=== PATIENT | female | born 1995 | race Two or more races ===

== ENCOUNTER 2022-10-16 15:34 | Observation (INO) | payer MEDICAID, OTHER ==
[~2022-10-16] VITALS: Ht 172.7 cm; Wt 108.7 kg
[2022-10-16 16:46] VITALS: BP 122/68
[2022-10-16] MEDS ORDERED: ACETAMINOPHEN IV 1000 MG/100ML (10MG/ML) IV PRN (18:45)
[2022-10-16] MEDS ORDERED: AZITHROMYCIN 500MG/ 250ML 250 ML IV SCH (19:00)
[2022-10-16] MEDS ORDERED: NIFEdipine 10 MG CAP PO ONE (19:00)
[2022-10-16] MEDS ORDERED: ceFAZolin 2 GM/D5W100ml 100 ML IV ONE (19:00)
[2022-10-16 20:22] LABS: Alcohol, Urine < 3.0 mg/dL (0-10); Amphetamine Screen, Urine NEGATIVE (NEGATIVE); Barbiturate Scree,Urine NEGATIVE (NEGATIVE); Benzodiazephine Screen, Urine NEGATIVE (NEGATIVE); Cannabinoid Screen, Urine NEGATIVE (NEGATIVE); Cocaine Screen, Urine NEGATIVE (NEGATIVE); Opiate Scree,Urine NEGATIVE (NEGATIVE); Phencyclidine Screen, Urine NEGATIVE (NEGATIVE)
[2022-10-16 20:49] LABS: Urine Bacteria NONE SEEN /hpf (None Seen); Urine Blood Negative /uL (Negative); Urine Mucus FEW (None Seen); Urine Specific Gravity 1.017 (1.001-1.035); Urine WBC 3 /hpf (0 - 5)
[2022-10-16] MEDS ORDERED: BETAMETHASONE ACET (30mg/5ml) 5ml Vial 6mg/ml IM ONE (22:45)
[2022-10-16 22:48] LABS: Basophils # (auto) 0 10 ^3/uL (0-0.2); Basophils % (auto) 0.3 % (0.0-2.0); Eosinophils # (auto) 0 10 ^3/uL (0-0.8); Hematocrit 34.6 % (36.0-46.0); Hemoglobin 11.6 g/dL (12.2-16.2); Lymphocytes % (auto) 12.1 % (10.0-50.0); Mean Corpuscular Hgb Conc. 33.5 g/dL (32.0-36.0); Mean Corpuscular Volume 86.4 fL (80.0-100.0); Monocytes # (auto) 0.6 10 ^3/uL (0-1.3); Monocytes % (auto) 7.3 % (0.0-12.0); Neutrophils # (auto) 6.8 10 ^3/uL (1.6-8.6); Neutrophils % (auto) 80.3 % (37.0-80.0); Nucleated Red Blood Cells % 0.1 %; Red Blood Cells 4.01 10^6/uL (4.0-5.20); Red Cell Distribution Width 13.9 % (11.8-14.3); White Blood Cell 8.4 10^3/uL (4.4-10.8)
[2022-10-16] MEDS ORDERED: LACTATED RINGER'S 1,000 ML IV ONE ×2 (23:00)
[2022-10-16] MEDS ORDERED: LACTATED RINGER'S 1,000 ML IV SCH (23:00)
[2022-10-17] MEDS ORDERED: ceFAZolin 1GM/50ML 50 ML IV SCH (03:00)
[2022-10-17] MEDS ORDERED: PREN-96 PO (03:06)
== END 2022-10-17 03:01 | disposition home or self-care (01) ==
LOC: ER 15:34 → LDRP 16:50
PROVIDERS: ADMIT Obstetrics & Gynecology; ATTEND Obstetrics & Gynecology
DX: O98.513 Other viral diseases complicating pregnancy, third trimester (principal); U07.1 COVID-19; O60.03 Preterm labor without delivery, third trimester; O23.593 Infection of other part of genital tract in pregnancy, third trimester; B96.89 Other specified bacterial agents as the cause of diseases classified elsewhere; O23.03 Infections of kidney in pregnancy, third trimester; Z3A.34 34 weeks gestation of pregnancy
CPT/HCPCS: 36415; 59025; 76700; 76805; 76817; 80307; 81001; 81002; 81025; 85025; 87086; 87210; 87426; 87804; 94762; 96361; 96365; 96366; 96368; 96372; G0378; J0456; J0690; J0702; 96360